=== PATIENT | male | born 1990 | race Caucasian/White ===

== ENCOUNTER 2024-01-10 11:54 | Emergency (ER) | payer OTHER, SELFPAY ==
--- NOTE | ~2024-01-10 | XR_ITS ---
EXAMINATION: XR wrist LT 2V DATE: 01/10/2024 12:22 INDICATION: Left wrist pain. Fall. TECHNIQUE: 4 views of left wrist were obtained. COMPARISON: None. FINDINGS: There is an old healed fracture of distal radius with 8 degrees dorsal tilt of the distal a rticular surface. 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 Joint spaces are normal. IMPRESSION: 1. No acute fracture. Reviewed, dictated and finalized at location A. IMPRESSION: 1. No acute fracture.
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
[2024-01-10 12:11] VITALS: BP 122/82; PULSE 58; RESP 16; TEMP 37.2; O2SAT 100
== END 2024-01-10 12:41 | disposition home or self-care (01) ==
PROVIDERS: Emergency Provider Nurse Practitioner
DX: S63.502A Unspecified sprain of left wrist, initial encounter (principal); S66.912A Strain of unspecified muscle, fascia and tendon at wrist and hand level, left hand, initial encounter; V18.9XXA Unspecified pedal cyclist injured in noncollision transport accident in traffic accident, initial encounter
CPT/HCPCS: 73100; 99213; G0463